=== PATIENT | female | born 1995 | race Caucasian/White ===

== ENCOUNTER 2019-01-13 13:24 | Emergency (ER) | payer BC ==
--- NOTE | 2019-01-13 14:43 | ED ---
Headache - HPI Summary HPI Summary: Patient is a 23 y/o F presenting to the ED via EMS for a chief complaint of headache. Patient is present with her friend. For the last 2 weeks, patient has felt nauseous with a headache after eating certain foods, including nuts, legumes, and dairy. Patient describes the headache as "stale" and "tight" in the frontal region. For the last 2 days, patient has eaten a bland diet consisting of crackers and oatmeal without relief of symptoms. The morning of , the patient took her multivitamin and had a headache and chills soon after with fatigue despite sleeping 8 hours during the night. Patient made an appointment with [facility] and while walking to the health center, patient felt bilateral UE and LE weakness. Patient also admits left ear discomfort, nasal congestion, body aches, salty taste in her mouth, and dry mouth. Patient denies any fever, erythema of eyes, photophobia, sore throat, CP, SOB, cough, abdominal pain, vomiting, dysuria, hematuria, urinary frequency, neck pain, edema, rash, or dizziness. Patient has a PMHx of gastritis, vasovagal syncope, and chronic daily migraines for which she takes Cymbalta and sumatriptan as needed. The chronic daily migraines were well-controlled until the last few weeks. Patient has taken Tylenol for the headache without relief. In October 2018 , the patient saw a dietitian for gastric problems and was recommended to take collagen powder, which the patient had been taking until the last 2 weeks. Patient feels well-hydrated and drinks plenty of fluids. 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 - History Of Current Complaint Chief Complaint: EDHeadache Stated Complaint: HEADACHE, Hx Obtained From: Patient Onset/Duration: Started days ago, Still Present Initially Headache Was: Moderate Currently Pain Is: Moderate Timing: Intermittent, Lasting:, Days Character: Migraine - Tightness and "stale" Aggravating Factor: Nothing Allevating Factors: Nothing Associated Signs And Symptoms: Negative - Allergies/Home Medications Allergies/Adverse Reactions: Allergies Allergy/AdvReac Type Severity Reaction Status Date / Time No Known Allergies Allergy Verified 01/13/19 15:10 PMH/Surg Hx/FS Hx/Imm Hx Previously Healthy: Yes Endocrine/Hematology History: Denies: Hx Diabetes Cardiovascular History: Denies: Hx Hypercholesterolemia, Hx Hypertension Respiratory History: Denies: Hx Asthma GI History: Reports: Other GI Disorders - Hx gastritis Sensory History: Denies: Hx Legally Blind, Hx Deafness Opthamlomology History: Denies: Hx Legally Blind EENT History: Denies: Hx Deafness Neurological History: Reports: Hx Migraine, Other Neuro Impairments/Disorders - Hx vasovagal syncope - Surgical History Surgical History: None Surgery Procedure, Year, and Place: None Infectious Disease History: No Infectious Disease History: Denies: Traveled Outside the [place] in Last 30 Days - Family History Known Family History: Negative: Hypertension, Diabetes - Social History Occupation: Student Lives: Alone Alcohol Use: None Hx Substance Use: No Substance Use Type: Reports: None Hx Tobacco Use: No Smoking Status (MU): Never Smoked Tobacco Review of Systems Positive: Chills, Fatigue. Negative: Fever Negative: Photophobia, Erythema Positive: Other - Positive nasal congestion and left ear discomfort. Negative: Sore Throat Negative: Chest Pain Negative: Shortness Of Breath, Cough Positive: Nausea. Negative: Abdominal Pain, Vomiting Negative: dysuria, frequency - Urinary, hematuria Positive: Myalgia - Body aches; negative neck pain. Negative: Edema Negative: Rash Neurological: Other - Negative dizziness Positive: Headache, Weakness - Bilateral UE and LE All Other Systems Reviewed And Are Negative: Yes Physical Exam - Summary Physical Exam Summary: Constitutional: Well-developed, Well-nourished, Alert. (-) Distressed Skin: Warm, Dry HENT: Normocephalic; Atraumatic. Small mild serous effusion of the left ear. Eyes: Conjunctiva normal Neck: Musculoskeletal ROM normal neck. (-) JVD, (-) Stridor, (-) Tracheal deviation Cardio: Rhythm regular, rate normal, Heart sounds normal; Intact distal pulses; The pedal pulses are 2+ and symmetric. Radial pulses are 2+ and symmetric. (-) Murmur Pulmonary/Chest wall: Effort normal. (-) Respiratory distress, (-) Wheezes, (-) Rales Abd: Soft, (-) tenderness, (-) Distension, (-) Guarding, (-) Rebound Musculoskeletal: (-) Edema Lymph: (-) Cervical adenopathy Neuro: Alert, Oriented x3 Psych: Mood and affect Normal Triage Information Reviewed: Yes Vital Signs On Initial Exam: Initial Vitals Temp Pulse Resp BP Pulse Ox 98.2 F 67 16 112/66 99 01/13/19 13:31 01/13/19 13:31 01/13/19 13:31 01/13/19 13:31 01/13/19 13:31 Vital Signs Reviewed: Yes Procedures - Sedation Patient Received Moderate/Deep Sedation with Procedure: No Diagnostics - Vital Signs Vital Signs Temp Pulse Resp BP Pulse Ox 01/13/19 13:31 98.2 F 67 16 112/66 99 - Laboratory Result Diagrams: 01/13/19 15:20 01/13/19 15:20 Lab Statement: Any lab studies that have been ordered have been reviewed, and results considered in the medical decision making process. - EKG 15:59 Cardiac Rate: Bradycardia - 58 BPM EKG Rhythm: Sinus Bradycardia ST Segment: Normal Ectopy: None Summary of EKG Findings: EKG at 15:59 reveals 58 BPM with sinus bradycardia, no STEMI. Reviewed and interpreted by ED physician. Re-Evaluation - Re-Evaluation First Change: Unchanged Comment: At 17:42, patient feels weak after every time she eats. She could be considered for SMA syndrome or even FPIES. Outpatient follow up is warranted. No current pain, adequate fluids, ambulating and got on her feet without difficulty. Headache Course/Dx - Course Course Of Treatment: Patient is a 23 y/o F presenting to the ED via EMS for a chief complaint of headache. Patient is present with her friend. For the last 2 weeks, patient has felt nauseous with a headache after eating certain foods, including nuts, legumes, and dairy. Patient describes the headache as "stale" and "tight" in the frontal region. For the last 2 days, patient has eaten a bland diet consisting of crackers and oatmeal without relief of symptoms. The morning of 01/13/19, the patient took her multivitamin and had a headache and chills soon after with fatigue despite sleeping 8 hours during the night. Patient made an appointment with [facility] and while walking to the health center, patient felt bilateral UE and LE weakness. Patient also admits left ear discomfort, nasal congestion, body aches, salty taste in her mouth, and dry mouth. Patient denies any fever, erythema of eyes, photophobia, sore throat, CP , SOB, cough, abdominal pain, vomiting, dysuria, hematuria, urinary frequency, neck pain, edema, rash, or dizziness. Patient has a PMHx of gastritis, vasovagal syncope, and chronic daily migraines for which she takes Cymbalta and sumatriptan as needed. The chronic daily migraines were well-controlled until the last few weeks. Patient has taken Tylenol for the headache without relief. In October 2018, the patient saw a dietitian for gastric problems and was recommended to take collagen powder, which the patient had been taking until the last 2 weeks. Patient feels well-hydrated and drinks plenty of fluids. On exam, small mild serous effusion of the left ear. In the ED course, patient was given fluids. Laboratory abnormal findings: Hgb 11.7, MCH 26, RDW 16, absolute lymphs 0.9, urine specific gravity 1.002. EKG at 15:59 reveals 58 BPM with sinus bradycardia, no STEMI. No headache currently, food intolerance did not seem to follow any physiological pattern, could be psychogenic. Considered atypical migraine presentation. At 17:42, patient feels weak after every time she eats. She could be considered for SMA syndrome or even FPIES. Outpatient follow up is warranted. No current pain, adequate fluids, ambulating and got on her feet without difficulty. Discussed the possibility of eating disorder with the patient as well. Patient will be discharged with a diagnosis of headache and fluid intolerance. Follow up with [facility] tomorrow. - Diagnoses Provider Diagnoses: Headache, Fluid imbalance Is Visit Related: No Discharge ED - Sign-Out/Discharge Documenting (check all that apply): Patient Departure - Discharge - Discharge Plan Condition: Stable Disposition: HOME Patient Education Materials: Acute Headache (ED) Forms: *School Release Referrals: [facility] - Hosea GASTON [Primary Care Provider] - Additional Instructions: Follow up with [facility] tomorrow. Return to the Emergency Department for worsening or changing symptoms. - Attestation Statements Document Initiated by Scribe: Yes Documenting Scribe: Roshni Yates Provider For Whom Christinaibe is Documenting (Include Credential): Tani Lux MD Scribe Attestation: Roshni Albright, scribed for Tani Lux MD on 01/13/19 at [id number]. Status of Scribe Document: Ready
[2019-01-13] MEDS ORDERED: NS 0.9% 1000 ML** 1,000 ML IV ONE (15:07)
[2019-01-13 15:28] LABS: ABS Basophils 0.1 10^3/ul (0-0.2); ABS Lymphocytes 0.9 10^3/ul (1.0-4.8); ABS Monocytes 0.3 10^3/ul (0-0.8); ABS Neutrophils 2.7 10^3/ul (1.5-7.7); Eosinophil % 0.9 %; Hematocrit 36 % (35-47); Hemoglobin 11.7 g/dL (12.0-16.0); Lymphocyte % 22.2 %; Mean Corpuscular HGB Conc 33 g/dL (31-36); Mean Corpuscular Hemoglobin 26 pg (27-31); Mean Corpuscular Volume 80 fL (80-97); Mean Platelet Volume 7.8 fL (7.4-10.4); Nucleated Red Blood Cells % 0.1; Platelet Count 239 10^3/uL (150-450); Red Blood Count 4.45 10^6 /uL (3.70-4.87); Red Cell Distribution Width 16 % (10-15); White Blood Count 3.9 10^3/uL (3.5-10.8)
[2019-01-13 16:01] LABS: ALT 19 U/L (7-52); AST 22 U/L (13-39); Albumin 4.8 g/dL (3.2-5.2); Albumin/Globulin Ratio 1.8 (1-3); Alkaline Phosphatase 70 U/L (34-104); Anion Gap 4 mmol/L (2-11); BUN/Creatinine Ratio 15.6 (8-20); Blood Urea Nitrogen 12 mg/dL (6-24); C Reactive Protein < 1.00 mg/L (<8.01); CO2 Carbon Dioxide 32 mmol/L (22-32); Calcium 9.7 mg/dL (8.6-10.3); Chloride 103 mmol/L (101-111); EGFR African American 114.5 (>60); EGFR Non-African American 94.6 (>60); Globulin 2.6 g/dL (2-4); Glucose 94 mg/dL (70-100); Magnesium 2.1 mg/dL (1.9-2.7); Potassium 3.9 mmol/L (3.5-5.0); Sodium 139 mmol/L (135-145); Total Protein 7.4 g/dL (6.4-8.9)
[2019-01-13 16:04] LABS: TSH (Thyroid Stimulating Horm) 0.49 mcIU/mL (0.34-5.60)
[2019-01-13 17:20] LABS: Urine Appearance Clear; Urine Bilirubin Negative (Negative); Urine Blood Negative (Negative); Urine Color Straw; Urine Glucose Negative (Negative); Urine Ketones Negative (Negative); Urine Nitrite Negative (Negative); Urine Protein Negative (Negative); Urine Specific Gravity 1.002 (1.010-1.030); Urine Urobilinogen Negative (Negative)
[2019-01-13 17:44] VITALS: BP 109/65
== END 2019-01-13 17:53 | disposition home or self-care (01) ==
LOC: ED 13:24
DX: G43.709 Chronic migraine without aura, not intractable, without status migrainosus (principal); E87.8 Other disorders of electrolyte and fluid balance, not elsewhere classified; R00.1 Bradycardia, unspecified; R53.83 Other fatigue; R68.83 Chills (without fever); R09.81 Nasal congestion; H92.02 Otalgia, left ear; R11.0 Nausea; M79.10 Myalgia, unspecified site; R53.1 Weakness
CPT/HCPCS: 36415; 80053; 81003; 83605; 83735; 84443; 85025; 86140; 86618; 93005; 96360; 99282